=== PATIENT | female | born 1960 | race African-American/Black ===

== ENCOUNTER 2017-09-11 13:49 | Emergency (ER) | payer MEDICARE, MEDICAID ==
[~2017-09-11 13:49] MED LIST: AMOXICILLIN 50500 M1; CIPROFLOXACIN500 M1 PO; CIPROFLOXIN HC2.5 ML OP; CORTISPORIN OTI10 M2 OT; DIAZEPAM 5 MG5 M1 PO; GAS-X180 MG PO; HYDROCODON-ACE1 EAC7; IBUPROFEN 800800 M1 PO; MEDROLDOSEPACK PO; NAPROSYN500 MG PO; NEOMYCIN-POLY-7.5 ML OPHTHALMIC; NORCO 5-325 TA1 EACH PO; OMNICEF PO; PREDNISONE 20 M20 M1 PO; PROBIOTIC1 EAC1 PO; TOBREX5 ML OPHTHALMIC; ZANTAC 150MG T150 M1 PO; ZPAK PO; [UNRECOGNIZED DRUG - REMARK]
== END 2017-09-11 14:01 | disposition left against medical advice (07) ==
LOC: M.ERS 13:49
DX: Z53.21 Procedure and treatment not carried out due to patient leaving prior to being seen by health care provider (principal)

== ENCOUNTER 2020-01-31 18:10 | Emergency (ER) | payer MEDICARE, MEDICAID ==
[~2020-01-31] VITALS: Ht 144.8 cm; Wt 120.2 kg
[2020-01-31] MEDS ORDERED: LIPITOR40 MG PO (18:31)
[2020-01-31] MEDS ORDERED: GABAPENTIN100 MG PO (18:31)
[2020-01-31] MEDS ORDERED: METFORMIN HCL500 M3 PO (18:31)
[2020-01-31] MEDS ORDERED: SYMBICORT160 MCG/4. INH (18:31)
[2020-01-31] MEDS ORDERED: PROAIR HFA8.5 GM INH (18:31)
[2020-01-31] MEDS ORDERED: COMBIGAN EYE DR10 ML TOP (18:32)
[2020-01-31] MEDS ORDERED: PERCOCET 5-3251 EACH PO (18:32)
[2020-01-31] MEDS ORDERED: HYDROXYZINE HCL25 M2 PO (20:15)
[2020-01-31 20:40] VITALS: BP 141/71
== END 2020-01-31 20:40 | disposition home or self-care (01) ==
LOC: M.ERS 18:10
DX: S29.012A Strain of muscle and tendon of back wall of thorax, initial encounter (principal); S39.012A Strain of muscle, fascia and tendon of lower back, initial encounter; Z91.041 Radiographic dye allergy status; V89.2XXA Person injured in unspecified motor-vehicle accident, traffic, initial encounter; Y93.89 Activity, other specified; Y92.89 Other specified places as the place of occurrence of the external cause; Y99.8 Other external cause status